=== PATIENT | female | born 2000 | race Caucasian/White ===

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

== ENCOUNTER 2024-05-28 09:30 | Outpatient (CLI) | payer OTHER ==
[~2024-05-28 09:30] MED LIST changes: +ZITHROMAX200 MG/5 M PO
== END 2024-05-28 10:00 | disposition home or self-care (01) ==
LOC: PPH VACUNA 09:30
PROVIDERS: ATTEND Emergency Medicine Pediatric Emergency Medicine
DX: Z23 Encounter for immunization (principal)

== ENCOUNTER 2024-06-16 07:45 | Emergency (ER) | payer OTHER ==
[~2024-06-16] VITALS: Ht 157.5 cm; Wt 57.2 kg
[2024-06-16] MEDS ORDERED: GUAIFENESIN 200 MG/10 ML BLIST.PACK PO ONE (09:30)
[2024-06-16 10:52] LABS: HEMATOCRIT 38.9 % (36.0-45.00); HEMOGLOBIN 13.6 g/dL (12.0-15.00); MEAN CELL VOLUME 85.4 fL (80.00-100.00); MEAN CORPUSCULAR HEMOGLOBIN 29.9 pg (27.00-32.0); PLATELET COUNT 232 K/uL (150-450); RED BLOOD COUNT 4.55 M/uL (4.00-6.00); RED CELL DISTRIBUTION WIDTH 12.5 % (11.5-14.5)
[2024-06-16] MEDS ORDERED: ACETAMINOPHEN 500 MG GEL..CAP PO ONE (11:45)
== END 2024-06-16 12:19 ==
LOC: ER 07:47
PROVIDERS: General Practice
DX: R53.81 Other malaise (principal); J10.1 Influenza due to other identified influenza virus with other respiratory manifestations; Z20.822 Contact with and (suspected) exposure to COVID-19

== ENCOUNTER 2025-02-06 14:54 | Emergency (ER) | payer OTHER ==
[~2025-02-06] VITALS: Ht 157.5 cm; Wt 55.8 kg
[2025-02-06] MEDS ORDERED: HALOPERIDOL LACTATE 5 MG/ML AMPUL IM STA (17:23)
[2025-02-06] MEDS ORDERED: KETOROLAC TROMETHAMINE 30 MG VIAL IV STA (17:24)
[2025-02-06] MEDS ORDERED: DIPHENHYDRAMINE HCL 50 MG/ML VIAL 1ML IM STA (17:24)
== END 2025-02-06 19:20 | disposition home or self-care (01) ==
LOC: ER 16:34
DX: G43.909 Migraine, unspecified, not intractable, without status migrainosus (principal)

== ENCOUNTER 2025-02-20 06:34 | Outpatient (CLI) | payer OTHER ==
[2025-02-20 07:51] LABS: BASO % 0.3 % (0.1-1.2); EOS # 0.20 (0.04-0.54); EOS % 3.3 % (0.7-7.0); LYMPH # 2.15 (1.18-3.74); LYMPH % 35.5 % (19.3-53.1); MEAN PLATELET VOLUME 10.20 fl (9.4-12.4); MONO # 0.64 (0.24-0.82); MONO % 10.6 % (4.7-12.5); NEUT # 3.02 (1.56-6.13); NEUT % 50.0 % (34.0-71.1); RED CELL DISTRIBUTION WIDTH 12.0 % (11.6-14.4)
[2025-02-20 08:19] LABS: ERYTHROCYTE SEDIMENTATION RATE 6 mm/hr (0-20)
[2025-02-20 08:38] LABS: ALT/SGPT 27.0 U/L (12-78); AST/SGOT 13.0 U/L (15-37); BILIRUBIN TOTAL 0.67 mg/dL (0.3-1.2); BUN CREA RATIO 31.0 (7.0-25.0); CREATININE SERUM 0.64 mg/dL (0.55-1.02); GFR 114.99; GLOBULINA 3.1 G/DL (2.4-3.5); GLUCOSE FASTING 87.0 mg/dL (65-100); OSMOLALITY SERUM 281.0 MOSM/KG (275-295); TSH 3.04 uIU/mL (0.358-3.74)
== END 2025-02-20 06:38 | disposition home or self-care (01) ==
LOC: LAB 06:34
DX: D64.9 Anemia, unspecified (principal); N17.9 Acute kidney failure, unspecified; E03.8 Other specified hypothyroidism; M31.6 Other giant cell arteritis

== ENCOUNTER → 2025-03-18 06:19 | Outpatient (CLI) | payer OTHER ==
[2025-03-18 07:09] LABS: BASO % 0.4 % (0.1-1.2); EOS # 0.20 (0.04-0.54); EOS % 3.8 % (0.7-7.0); LYMPH # 1.48 (1.18-3.74); LYMPH % 28.5 % (19.3-53.1); MEAN PLATELET VOLUME 9.70 fl (9.4-12.4); MONO # 0.49 (0.24-0.82); MONO % 9.4 % (4.7-12.5); NEUT # 3.00 (1.56-6.13); NEUT % 57.7 % (34.0-71.1); RED CELL DISTRIBUTION WIDTH 11.9 % (11.6-14.4)
[2025-03-18 09:19] LABS: BUN CREA RATIO 25.0 (7.0-25.0); CREATININE SERUM 0.71 mg/dL (0.55-1.02); GFR 101.13; GLUCOSE FASTING 83.0 mg/dL (65-100); OSMOLALITY SERUM 284.0 MOSM/KG (275-295)
[2025-03-18 09:20] LABS: T4 TOTAL 7.97 UG/DL (4.8-13.9); TSH 3.72 uIU/mL (0.358-3.74)
[2025-03-18 14:52] LABS: T3 TOTAL 1.43 ng/ml (0.846-2.02); VITAMIN D3 25 HYDROXY 42.61 ng/ml (30-120)
== END | disposition home or self-care (01) ==
LOC: LAB 06:19
PROVIDERS: ATTEND Internal Medicine
DX: I10 Essential (primary) hypertension (principal); E03.9 Hypothyroidism, unspecified; D64.9 Anemia, unspecified; E55.9 Vitamin D deficiency, unspecified

== ENCOUNTER 2025-05-28 06:15 | Outpatient (CLI) | payer OTHER | END 2025-05-28 06:23 | disposition home or self-care (01) | LOC: LAB 06:15 | PROVIDERS: ATTEND Obstetrics & Gynecology | DX: R19.00 Intra-abdominal and pelvic swelling, mass and lump, unspecified site (principal); E28.2 Polycystic ovarian syndrome ==